=== PATIENT | male | born 1955 | race Caucasian/White ===

== ENCOUNTER 2016-12-28 11:02 | Inpatient (IN) | payer MEDICAID ==
[~2016-12-28 11:02] MED LIST: .; ADVAIR 25028 BLISTE1 INH; ALBUTEROL2.5 MG/3 M INH; ALBUTEROL2.5 MG/3 M NEB; ASPIRIN81 M1 PO; DITROPAN XL10 M3 PO; FLAGYL500 M1 PO; IMODIUM A-1 MG/7.51 PO; KEPPRA500 M3 PO; LEVAQUIN500 M1 PO; LEVAQUIN750 M1 PO; LIPITOR80 M1 PO; METOPROLOL TART25 M1 PO; NORCO 5-325 TA1 EACH PO; PROAIR HFA8.5 GM INH; TIROSINT125 MC1 PO; TYLENOL EXTRA500 M1 PO
[2016-12-28 12:16] LABS: BASO % 0.4 % (0-2); EOSINOPHIL ABSOLUTE COUNT 1.6 tho/cmm (0.0-0.7); HCT-HEMATOCRIT 46.4 % (36.0-53.5); HGB-HEMOGLOBIN 16.1 gm/dl (13.5-17.0); IMMATURE GRANULOCYTES ABSOLUTE 0.05 tho/cmm (0-0.03); IMMATURE GRANULOCYTES PERCENT 0.5 % (0-0.3); LYMPH % 13.1 % (20-45); LYMPH ABSOLUTE COUNT 1.2 tho/cmm (0.8-4.5); MCHC MEAN CORPUSCULAR HGB CONC 34.7 % (32.0-36.0); MCV (MEAN CELL VOLUME) 80.7 fl (82.0-96.0); MEAN PLATELET VOLUME 8.5 cmc (9.4-12.4); MONO % 14.6 % (0-12); MONOCYTE ABSOLUTE COUNT 1.4 tho/cmm (0.0-1.2); NEUTROPHIL ABSOLUTE COUNT 5.2 tho/cmm (1.6-8.0); NEUTROPHIL-AUTOMATED 5.2 tho/cmm (1.6-8.0); NEUTROPHILS % 54.9 % (40-80); PLATELET COUNT 544 tho/cmm (150-450); RED BLOOD COUNT 5.75 mil/cmm (4.40-5.70); RED CELL DISTRIBUTION WIDTH 16.8 % (12.4-16.4); WHITE BLOOD COUNT 9.5 tho/cmm (4.0-10.0)
[2016-12-28 12:23] LABS: EOS % 16.5 % (0-7)
[2016-12-28 12:23] LABS: URINE BILIRUBIN NEGATIVE (NEG); URINE BLOOD LARGE (NEG); URINE GLUCOSE (UA) NEGATIVE (NEG); URINE KETONE MODERATE (NEG); URINE LEUKOCYTE ESTERASE POSITIVE (NEG); URINE NITRITE NEGATIVE (NEG); URINE PROTEIN LARGE (NEG); URINE SPECIFIC GRAVITY 1.025 (1.003-1.030)
[2016-12-28 12:29] LABS: ANION GAP 20 mmol/L (0-20); BLOOD UREA NITROGEN 23 mg/dl (6-24); CALCIUM 9.9 mg/dl (8.5-10.5); CARBON DIOXIDE-VENOUS 19 mmol/L (22-32); CHLORIDE 98 mmol/l (96-110); CREATININE 1.71 mg/dl (0.60-1.30); GLUCOSE 108 mg/dL (70-110); POTASSIUM 4.6 mmol/L (3.7-5.1); SODIUM 132 mmol/L (135-145); eGFR VALUE FOR BLACK 49 mL/Min
[2016-12-28 12:41] LABS: URINE APPEARANCE CLOUDY; URINE COLOR YELLOW
[2016-12-28 12:42] LABS: URINE BACTERIA 4+; URINE WBC FULL FIELD /[HPF] (0-5)
[2016-12-29 05:06] LABS: URINE BILIRUBIN NEGATIVE (NEG); URINE BLOOD LARGE (NEG); URINE GLUCOSE (UA) NEGATIVE (NEG); URINE KETONE SMALL (NEG); URINE LEUKOCYTE ESTERASE POSITIVE (NEG); URINE NITRITE NEGATIVE (NEG); URINE PROTEIN MODERATE (NEG)
[2016-12-29 05:07] LABS: URINE APPEARANCE HAZY; URINE COLOR STRAW
[2016-12-29 05:13] LABS: URINE BACTERIA 3+; URINE EPITHELIAL CELLS RARE /[HPF] (0-10); URINE RBC FULL FIELD /[HPF] (0-5); URINE WBC 20-30 /[HPF] (0-5)
[2016-12-29 06:08] LABS: BASO % 0.1 % (0-2); HGB-HEMOGLOBIN 13.8 gm/dl (13.5-17.0); IMMATURE GRANULOCYTES ABSOLUTE 0.08 tho/cmm (0-0.03); IMMATURE GRANULOCYTES PERCENT 0.4 % (0-0.3); LYMPH % 2.6 % (20-45); LYMPH ABSOLUTE COUNT 0.5 tho/cmm (0.8-4.5); MCH (MEAN CORPUSCULAR HGB) 27.5 pg (28.0-32.0); MCHC MEAN CORPUSCULAR HGB CONC 33.7 % (32.0-36.0); MCV (MEAN CELL VOLUME) 81.8 fl (82.0-96.0); MEAN PLATELET VOLUME 8.6 cmc (9.4-12.4); MONO % 10.5 % (0-12); MONOCYTE ABSOLUTE COUNT 2.2 tho/cmm (0.0-1.2); NEUTROPHIL ABSOLUTE COUNT 17.7 tho/cmm (1.6-8.0); NEUTROPHIL-AUTOMATED 17.7 tho/cmm (1.6-8.0); NEUTROPHILS % 86.4 % (40-80); PLATELET COUNT 481 tho/cmm (150-450); RED BLOOD COUNT 5.01 mil/cmm (4.40-5.70); RED CELL DISTRIBUTION WIDTH 17.1 % (12.4-16.4)
[2016-12-29 06:15] LABS: WHITE BLOOD COUNT 20.5 tho/cmm (4.0-10.0)
[2016-12-29 06:23] LABS: BLOOD UREA NITROGEN 25 mg/dl (6-24); CARBON DIOXIDE-VENOUS 19 mmol/L (22-32); CHLORIDE 106 mmol/l (96-110); CREATININE 1.55 mg/dl (0.60-1.30); PHOSPHOROUS 4.3 mg/dl (2.5-4.9); SODIUM 134 mmol/L (135-145); eGFR VALUE FOR BLACK 55 mL/Min
[2016-12-29 06:27] LABS: CALCIUM 8.5 mg/dl (8.5-10.5)
[2016-12-29 06:29] LABS: ANION GAP 15 mmol/L (0-20); GLUCOSE 190 mg/dL (70-110); POTASSIUM 5.5 mmol/L (3.7-5.1)
[2016-12-29 20:57] LABS: BLOOD UREA NITROGEN 27 mg/dl (6-24); CALCIUM 8.3 mg/dl (8.5-10.5); CARBON DIOXIDE-VENOUS 11 mmol/L (22-32); CHLORIDE 111 mmol/l (96-110); CREATININE 1.59 mg/dl (0.60-1.30); SODIUM 136 mmol/L (135-145); eGFR VALUE FOR BLACK 54 mL/Min
[2016-12-29 20:59] LABS: ANION GAP 19 mmol/L (0-20); GLUCOSE 76 mg/dL (70-110)
[2016-12-30 05:49] LABS: BASO % 0.2 % (0-2); EOS % 0.2 % (0-7); HCT-HEMATOCRIT 34.2 % (36.0-53.5); HGB-HEMOGLOBIN 11.3 gm/dl (13.5-17.0); IMMATURE GRANULOCYTES ABSOLUTE 0.05 tho/cmm (0-0.03); IMMATURE GRANULOCYTES PERCENT 0.3 % (0-0.3); LYMPH % 3.9 % (20-45); LYMPH ABSOLUTE COUNT 0.7 tho/cmm (0.8-4.5); MCH (MEAN CORPUSCULAR HGB) 27.1 pg (28.0-32.0); MEAN PLATELET VOLUME 8.5 cmc (9.4-12.4); MONO % 16.1 % (0-12); MONOCYTE ABSOLUTE COUNT 2.7 tho/cmm (0.0-1.2); NEUTROPHIL ABSOLUTE COUNT 13.2 tho/cmm (1.6-8.0); NEUTROPHIL-AUTOMATED 13.2 tho/cmm (1.6-8.0); NEUTROPHILS % 79.3 % (40-80); PLATELET COUNT 306 tho/cmm (150-450); RED BLOOD COUNT 4.17 mil/cmm (4.40-5.70); WHITE BLOOD COUNT 16.6 tho/cmm (4.0-10.0)
[2016-12-30 06:25] LABS: BLOOD UREA NITROGEN 22 mg/dl (6-24); CALCIUM 8.3 mg/dl (8.5-10.5); CHLORIDE 110 mmol/l (96-110); CREATININE 1.26 mg/dl (0.60-1.30); MAGNESIUM 1.8 mg/dl (1.3-2.6); PHOSPHOROUS 2.4 mg/dl (2.5-4.9); POTASSIUM 4.6 mmol/L (3.7-5.1); SODIUM 136 mmol/L (135-145); eGFR VALUE FOR BLACK 71 mL/Min
[2016-12-30 06:59] LABS: ANION GAP 12 mmol/L (0-20); CARBON DIOXIDE-VENOUS 19 mmol/L (22-32); GLUCOSE 155 mg/dL (70-110)
[2016-12-30 14:26] LABS: ANION GAP 12 mmol/L (0-20); BLOOD UREA NITROGEN 19 mg/dl (6-24); CALCIUM 8.3 mg/dl (8.5-10.5); CARBON DIOXIDE-VENOUS 20 mmol/L (22-32); CHLORIDE 109 mmol/l (96-110); CREATININE 1.08 mg/dl (0.60-1.30); GLUCOSE 128 mg/dL (70-110); SODIUM 136 mmol/L (135-145); eGFR VALUE FOR BLACK 85 mL/Min
[2016-12-30 14:27] LABS: POTASSIUM 4.5 mmol/L (3.7-5.1)
[2016-12-31 05:44] LABS: BASO % 0.1 % (0-2); EOS % 4.1 % (0-7); EOSINOPHIL ABSOLUTE COUNT 0.4 tho/cmm (0.0-0.7); HCT-HEMATOCRIT 30.2 % (36.0-53.5); IMMATURE GRANULOCYTES ABSOLUTE 0.02 tho/cmm (0-0.03); IMMATURE GRANULOCYTES PERCENT 0.2 % (0-0.3); LYMPH % 7.4 % (20-45); LYMPH ABSOLUTE COUNT 0.8 tho/cmm (0.8-4.5); MCH (MEAN CORPUSCULAR HGB) 27.2 pg (28.0-32.0); MCHC MEAN CORPUSCULAR HGB CONC 33.1 % (32.0-36.0); MCV (MEAN CELL VOLUME) 82.1 fl (82.0-96.0); MEAN PLATELET VOLUME 8.5 cmc (9.4-12.4); MONO % 12.7 % (0-12); MONOCYTE ABSOLUTE COUNT 1.3 tho/cmm (0.0-1.2); NEUTROPHIL ABSOLUTE COUNT 7.9 tho/cmm (1.6-8.0); NEUTROPHIL-AUTOMATED 7.9 tho/cmm (1.6-8.0); NEUTROPHILS % 75.5 % (40-80); PLATELET COUNT 320 tho/cmm (150-450); RED BLOOD COUNT 3.68 mil/cmm (4.40-5.70); RED CELL DISTRIBUTION WIDTH 16.9 % (12.4-16.4); WHITE BLOOD COUNT 10.5 tho/cmm (4.0-10.0)
[2016-12-31 05:54] LABS: ANION GAP 11 mmol/L (0-20); BLOOD UREA NITROGEN 13 mg/dl (6-24); CALCIUM 8.1 mg/dl (8.5-10.5); CARBON DIOXIDE-VENOUS 22 mmol/L (22-32); CHLORIDE 109 mmol/l (96-110); CREATININE 0.89 mg/dl (0.60-1.30); GLUCOSE 140 mg/dL (70-110); MAGNESIUM 1.9 mg/dl (1.3-2.6); PHOSPHOROUS 1.5 mg/dl (2.5-4.9); POTASSIUM 3.8 mmol/L (3.7-5.1); SODIUM 138 mmol/L (135-145); eGFR VALUE FOR BLACK >90 mL/Min
[2017-01-01 06:04] LABS: BASO % 0.1 % (0-2); HCT-HEMATOCRIT 31.1 % (36.0-53.5); HGB-HEMOGLOBIN 10.5 gm/dl (13.5-17.0); IMMATURE GRANULOCYTES ABSOLUTE 0.02 tho/cmm (0-0.03); IMMATURE GRANULOCYTES PERCENT 0.2 % (0-0.3); LYMPH % 7.6 % (20-45); LYMPH ABSOLUTE COUNT 0.7 tho/cmm (0.8-4.5); MCH (MEAN CORPUSCULAR HGB) 27.3 pg (28.0-32.0); MCHC MEAN CORPUSCULAR HGB CONC 33.8 % (32.0-36.0); MEAN PLATELET VOLUME 8.6 cmc (9.4-12.4); MONO % 14.3 % (0-12); MONOCYTE ABSOLUTE COUNT 1.3 tho/cmm (0.0-1.2); NEUTROPHILS % 66.8 % (40-80); PLATELET COUNT 342 tho/cmm (150-450); RED BLOOD COUNT 3.84 mil/cmm (4.40-5.70); RED CELL DISTRIBUTION WIDTH 16.6 % (12.4-16.4)
[2017-01-01 06:20] LABS: ANION GAP 12 mmol/L (0-20); BLOOD UREA NITROGEN 7 mg/dl (6-24); CALCIUM 8.1 mg/dl (8.5-10.5); CARBON DIOXIDE-VENOUS 21 mmol/L (22-32); CHLORIDE 106 mmol/l (96-110); CREATININE 0.76 mg/dl (0.60-1.30); GLUCOSE 117 mg/dL (70-110); MAGNESIUM 1.8 mg/dl (1.3-2.6); PHOSPHOROUS 1.8 mg/dl (2.5-4.9); POTASSIUM 3.5 mmol/L (3.7-5.1); SODIUM 135 mmol/L (135-145); eGFR VALUE FOR BLACK >90 mL/Min
[2017-01-02 05:04] LABS: BASO % 0.3 % (0-2); EOSINOPHIL ABSOLUTE COUNT 1.6 tho/cmm (0.0-0.7); HCT-HEMATOCRIT 30.1 % (36.0-53.5); HGB-HEMOGLOBIN 10.1 gm/dl (13.5-17.0); IMMATURE GRANULOCYTES ABSOLUTE 0.05 tho/cmm (0-0.03); IMMATURE GRANULOCYTES PERCENT 0.5 % (0-0.3); LYMPH % 8.1 % (20-45); LYMPH ABSOLUTE COUNT 0.8 tho/cmm (0.8-4.5); MCH (MEAN CORPUSCULAR HGB) 27.2 pg (28.0-32.0); MCHC MEAN CORPUSCULAR HGB CONC 33.6 % (32.0-36.0); MCV (MEAN CELL VOLUME) 80.9 fl (82.0-96.0); MEAN PLATELET VOLUME 8.8 cmc (9.4-12.4); MONO % 18.4 % (0-12); MONOCYTE ABSOLUTE COUNT 1.9 tho/cmm (0.0-1.2); NEUTROPHIL ABSOLUTE COUNT 5.8 tho/cmm (1.6-8.0); NEUTROPHIL-AUTOMATED 5.8 tho/cmm (1.6-8.0); PLATELET COUNT 369 tho/cmm (150-450); RED BLOOD COUNT 3.72 mil/cmm (4.40-5.70); RED CELL DISTRIBUTION WIDTH 16.6 % (12.4-16.4); WHITE BLOOD COUNT 10.2 tho/cmm (4.0-10.0)
[2017-01-02 05:10] LABS: EOS % 15.7 % (0-7)
[2017-01-02 05:32] LABS: BLOOD UREA NITROGEN 8 mg/dl (6-24); CALCIUM 7.9 mg/dl (8.5-10.5); CARBON DIOXIDE-VENOUS 20 mmol/L (22-32); CHLORIDE 109 mmol/l (96-110); CREATININE 0.67 mg/dl (0.60-1.30); GLUCOSE 75 mg/dL (70-110); PHOSPHOROUS 2.7 mg/dl (2.5-4.9); SODIUM 138 mmol/L (135-145); eGFR VALUE FOR BLACK >90 mL/Min
[2017-01-02 05:34] LABS: ANION GAP 14 mmol/L (0-20); MAGNESIUM 2.2 mg/dl (1.3-2.6); POTASSIUM 4.7 mmol/L (3.7-5.1)
[2017-01-03 05:19] LABS: BASO % 0.3 % (0-2); EOSINOPHIL ABSOLUTE COUNT 1.4 tho/cmm (0.0-0.7); HCT-HEMATOCRIT 28.8 % (36.0-53.5); HGB-HEMOGLOBIN 9.8 gm/dl (13.5-17.0); IMMATURE GRANULOCYTES ABSOLUTE 0.05 tho/cmm (0-0.03); IMMATURE GRANULOCYTES PERCENT 0.5 % (0-0.3); LYMPH % 8.9 % (20-45); LYMPH ABSOLUTE COUNT 0.8 tho/cmm (0.8-4.5); MCH (MEAN CORPUSCULAR HGB) 27.3 pg (28.0-32.0); MCV (MEAN CELL VOLUME) 80.2 fl (82.0-96.0); MEAN PLATELET VOLUME 8.5 cmc (9.4-12.4); MONO % 18.5 % (0-12); MONOCYTE ABSOLUTE COUNT 1.7 tho/cmm (0.0-1.2); NEUTROPHIL ABSOLUTE COUNT 5.2 tho/cmm (1.6-8.0); NEUTROPHIL-AUTOMATED 5.2 tho/cmm (1.6-8.0); NEUTROPHILS % 56.4 % (40-80); PLATELET COUNT 348 tho/cmm (150-450); RED BLOOD COUNT 3.59 mil/cmm (4.40-5.70); RED CELL DISTRIBUTION WIDTH 16.4 % (12.4-16.4); WHITE BLOOD COUNT 9.3 tho/cmm (4.0-10.0)
[2017-01-03 05:32] LABS: EOS % 15.4 % (0-7)
[2017-01-03 05:40] LABS: BLOOD UREA NITROGEN 5 mg/dl (6-24); CARBON DIOXIDE-VENOUS 23 mmol/L (22-32); CHLORIDE 105 mmol/l (96-110); PHOSPHOROUS 2.5 mg/dl (2.5-4.9); SODIUM 136 mmol/L (135-145); eGFR VALUE FOR BLACK >90 mL/Min
[2017-01-03 06:02] LABS: ANION GAP 12 mmol/L (0-20); GLUCOSE 117 mg/dL (70-110); MAGNESIUM 1.9 mg/dl (1.3-2.6); POTASSIUM 3.8 mmol/L (3.7-5.1)
[2017-01-03 11:49] LABS: BODY FLUID TYPE ASCITIC
[2017-01-04 10:26] LABS: BASO % 0.2 % (0-2); EOSINOPHIL ABSOLUTE COUNT 1.5 tho/cmm (0.0-0.7); HCT-HEMATOCRIT 30.3 % (36.0-53.5); HGB-HEMOGLOBIN 10.3 gm/dl (13.5-17.0); IMMATURE GRANULOCYTES ABSOLUTE 0.09 tho/cmm (0-0.03); IMMATURE GRANULOCYTES PERCENT 0.7 % (0-0.3); LYMPH % 6.7 % (20-45); LYMPH ABSOLUTE COUNT 0.8 tho/cmm (0.8-4.5); MCH (MEAN CORPUSCULAR HGB) 27.5 pg (28.0-32.0); MEAN PLATELET VOLUME 8.7 cmc (9.4-12.4); MONOCYTE ABSOLUTE COUNT 1.5 tho/cmm (0.0-1.2); NEUTROPHIL ABSOLUTE COUNT 8.3 tho/cmm (1.6-8.0); NEUTROPHIL-AUTOMATED 8.3 tho/cmm (1.6-8.0); NEUTROPHILS % 68.4 % (40-80); PLATELET COUNT 397 tho/cmm (150-450); RED BLOOD COUNT 3.74 mil/cmm (4.40-5.70); RED CELL DISTRIBUTION WIDTH 16.3 % (12.4-16.4); WHITE BLOOD COUNT 12.2 tho/cmm (4.0-10.0)
[2017-01-04 10:41] LABS: BLOOD UREA NITROGEN 4 mg/dl (6-24); CALCIUM 8.4 mg/dl (8.5-10.5); CARBON DIOXIDE-VENOUS 21 mmol/L (22-32); CHLORIDE 106 mmol/l (96-110); CREATININE 0.68 mg/dl (0.60-1.30); GLUCOSE 107 mg/dL (70-110); PHOSPHOROUS 3.2 mg/dl (2.5-4.9); SODIUM 137 mmol/L (135-145); eGFR VALUE FOR BLACK >90 mL/Min
[2017-01-04 10:49] LABS: ANION GAP 14 mmol/L (0-20); MAGNESIUM 1.9 mg/dl (1.3-2.6); POTASSIUM 3.7 mmol/L (3.7-5.1)
[2017-01-05 07:14] LABS: BASO % 0.3 % (0-2); EOS % 11.2 % (0-7); EOSINOPHIL ABSOLUTE COUNT 1.2 tho/cmm (0.0-0.7); HCT-HEMATOCRIT 28.1 % (36.0-53.5); HGB-HEMOGLOBIN 9.6 gm/dl (13.5-17.0); IMMATURE GRANULOCYTES ABSOLUTE 0.12 tho/cmm (0-0.03); IMMATURE GRANULOCYTES PERCENT 1.1 % (0-0.3); LYMPH % 9.1 % (20-45); MCH (MEAN CORPUSCULAR HGB) 27.4 pg (28.0-32.0); MCHC MEAN CORPUSCULAR HGB CONC 34.2 % (32.0-36.0); MCV (MEAN CELL VOLUME) 80.3 fl (82.0-96.0); MONO % 16.5 % (0-12); MONOCYTE ABSOLUTE COUNT 1.8 tho/cmm (0.0-1.2); NEUTROPHIL ABSOLUTE COUNT 6.6 tho/cmm (1.6-8.0); NEUTROPHIL-AUTOMATED 6.6 tho/cmm (1.6-8.0); NEUTROPHILS % 61.8 % (40-80); PLATELET COUNT 402 tho/cmm (150-450); RED CELL DISTRIBUTION WIDTH 16.4 % (12.4-16.4); WHITE BLOOD COUNT 10.6 tho/cmm (4.0-10.0)
[2017-01-07 07:42] LABS: HGB-HEMOGLOBIN 9.3 gm/dl (13.5-17.0); PLATELET COUNT 507 tho/cmm (150-450)
[2017-01-08 05:40] LABS: BASO % 0.4 % (0-2); EOSINOPHIL ABSOLUTE COUNT 1.4 tho/cmm (0.0-0.7); HCT-HEMATOCRIT 27.1 % (36.0-53.5); IMMATURE GRANULOCYTES ABSOLUTE 0.08 tho/cmm (0-0.03); IMMATURE GRANULOCYTES PERCENT 0.9 % (0-0.3); LYMPH % 13.4 % (20-45); LYMPH ABSOLUTE COUNT 1.1 tho/cmm (0.8-4.5); MCH (MEAN CORPUSCULAR HGB) 26.9 pg (28.0-32.0); MCHC MEAN CORPUSCULAR HGB CONC 33.2 % (32.0-36.0); MCV (MEAN CELL VOLUME) 80.9 fl (82.0-96.0); MEAN PLATELET VOLUME 8.4 cmc (9.4-12.4); MONO % 17.9 % (0-12); MONOCYTE ABSOLUTE COUNT 1.5 tho/cmm (0.0-1.2); NEUTROPHIL ABSOLUTE COUNT 4.3 tho/cmm (1.6-8.0); NEUTROPHIL-AUTOMATED 4.3 tho/cmm (1.6-8.0); PLATELET COUNT 538 tho/cmm (150-450); RED BLOOD COUNT 3.35 mil/cmm (4.40-5.70); RED CELL DISTRIBUTION WIDTH 16.1 % (12.4-16.4); WHITE BLOOD COUNT 8.5 tho/cmm (4.0-10.0)
[2017-01-08 06:09] LABS: EOS % 16.4 % (0-7)
[2017-01-09 06:12] LABS: HGB-HEMOGLOBIN 9.1 gm/dl (13.5-17.0); PLATELET COUNT 580 tho/cmm (150-450)
[2017-01-09] MEDS ORDERED: SULFAMYLON SOL250 M1 TP (10:11)
[2017-01-09] MEDS ORDERED: CYCLOBENZAPRINE10 M1 PO (10:12)
[2017-01-09] MEDS ORDERED: IBUPROFEN200 M2 PO (10:13)
[2017-01-09] MEDS ORDERED: PERCOCET 5-3251 EACH PO (10:14)
[2017-01-09] MEDS ORDERED: FLOMAX0.4 M1 PO (10:16)
[2017-05-07] MEDS ORDERED: LIPITOR80 M1 PO (19:41)
[2017-05-07] MEDS ORDERED: SYNTHROID137 MC1 PO (19:41)
[2017-05-09] MEDS ORDERED: ZITHROMAX250 M1 PO (09:18)
[2017-05-09] MEDS ORDERED: PREDNISONE10 M1 PO (09:20)
[2017-05-09] MEDS ORDERED: NORVASC5 M2 PO (09:21)
== END 2017-01-09 15:28 | disposition home health service (06) | DRG 660 ==
LOC: SHSB 11:02 → ORW 15:01 → PACU 21:05 → BURN 22:20
PROVIDERS: Surgery; Urology; ADMIT Surgery
PROC: 0T170ZB Bypass Left Ureter to Bladder, Open Approach (ICD-10-PCS; principal; 2016-12-28)
PROC: 0JN80ZZ Release Abdomen Subcutaneous Tissue and Fascia, Open Approach (ICD-10-PCS; 2016-12-28)
PROC: 0DBB0ZZ Excision of Ileum, Open Approach (ICD-10-PCS; 2016-12-28)
PROC: 0WUF0JZ Supplement Abdominal Wall with Synthetic Substitute, Open Approach (ICD-10-PCS; 2016-12-28)
PROC: 0T770DZ Dilation of Left Ureter with Intraluminal Device, Open Approach (ICD-10-PCS; 2016-12-28)
PROC: 0TP98DZ Removal of Intraluminal Device from Ureter, Via Natural or Artificial Opening Endoscopic (ICD-10-PCS; 2016-12-28)
PROC: 05H633Z Insertion of Infusion Device into Left Subclavian Vein, Percutaneous Approach (ICD-10-PCS; 2016-12-29)
DX: N13.5 Crossing vessel and stricture of ureter without hydronephrosis (principal); K56.7 Ileus, unspecified; N39.0 Urinary tract infection, site not specified; K43.9 Ventral hernia without obstruction or gangrene; Z85.038 Personal history of other malignant neoplasm of large intestine; Z92.21 Personal history of antineoplastic chemotherapy; K66.0 Peritoneal adhesions (postprocedural) (postinfection); I95.81 Postprocedural hypotension; N99.0 Postprocedural (acute) (chronic) kidney failure
CPT/HCPCS: C1751; C1769; C2617; C9113; J0131; J0295; J0610; J0690; J1170; J1335; J1450; J1644; J1815; J2250; J2270; J2405; J2795; J3010; J3475; J3480; J7030; J7040; J7050; J7999; Q4130; Q9958

== ENCOUNTER 2017-03-20 19:14 | Emergency (ER) | payer MEDICAID ==
[~2017-03-20 19:14] MED LIST changes: +CYCLOBENZAPRINE10 M1 PO; +FLOMAX0.4 M1 PO; +IBUPROFEN200 M2 PO; +PERCOCET 5-3251 EACH PO; +SULFAMYLON SOL250 M1 TP
[2017-03-20 20:22] LABS: BASO % 0.5 % (0-2); EOS % 14.9 % (0-7); EOSINOPHIL ABSOLUTE COUNT 1.2 tho/cmm (0.0-0.7); HCT-HEMATOCRIT 33.3 % (36.0-53.5); HGB-HEMOGLOBIN 11.3 gm/dl (13.5-17.0); IMMATURE GRANULOCYTES ABSOLUTE 0.02 tho/cmm (0-0.03); IMMATURE GRANULOCYTES PERCENT 0.2 % (0-0.3); LYMPH % 13.4 % (20-45); LYMPH ABSOLUTE COUNT 1.1 tho/cmm (0.8-4.5); MCH (MEAN CORPUSCULAR HGB) 26.2 pg (28.0-32.0); MCHC MEAN CORPUSCULAR HGB CONC 33.9 % (32.0-36.0); MCV (MEAN CELL VOLUME) 77.3 fl (82.0-96.0); MONO % 13.4 % (0-12); MONOCYTE ABSOLUTE COUNT 1.1 tho/cmm (0.0-1.2); NEUTROPHIL ABSOLUTE COUNT 4.8 tho/cmm (1.6-8.0); NEUTROPHIL-AUTOMATED 4.8 tho/cmm (1.6-8.0); NEUTROPHILS % 57.6 % (40-80); PLATELET COUNT 484 tho/cmm (150-450); RED BLOOD COUNT 4.31 mil/cmm (4.40-5.70); WHITE BLOOD COUNT 8.3 tho/cmm (4.0-10.0)
[2017-03-20 20:35] LABS: ANION GAP 13 mmol/L (0-20); BLOOD UREA NITROGEN 13 mg/dl (6-24); CALCIUM 9.1 mg/dl (8.5-10.5); CARBON DIOXIDE-VENOUS 23 mmol/L (22-32); CHLORIDE 92 mmol/l (96-110); CREATININE 0.84 mg/dl (0.60-1.30); GLUCOSE 82 mg/dL (70-110); POTASSIUM 3.9 mmol/L (3.7-5.1); SODIUM 124 mmol/L (135-145); eGFR VALUE FOR BLACK >90 mL/Min
[2017-03-20] MEDS ORDERED: PREDNISONE10 M1 PO (21:15)
[2017-03-20] MEDS ORDERED: DOXYCYCLINE HY100 M3 PO (21:15)
[2017-05-07] MEDS ORDERED: SYNTHROID137 MC1 PO (19:41)
[2017-05-07] MEDS ORDERED: LIPITOR80 M1 PO (19:41)
[2017-05-09] MEDS ORDERED: ZITHROMAX250 M1 PO (09:18)
[2017-05-09] MEDS ORDERED: PREDNISONE10 M1 PO (09:20)
[2017-05-09] MEDS ORDERED: NORVASC5 M2 PO (09:21)
== END 2017-03-20 21:36 ==
LOC: EDMED 19:14
PROVIDERS: Physician Assistant
DX: J44.1 Chronic obstructive pulmonary disease with (acute) exacerbation (principal); E87.1 Hypo-osmolality and hyponatremia; I10 Essential (primary) hypertension; Z87.442 Personal history of urinary calculi; Z87.891 Personal history of nicotine dependence